=== PATIENT | female | born 1980 | race Caucasian/White ===

== ENCOUNTER 2017-01-17 16:57 | Emergency (ER) | payer OTHER ==
[2017-01-17 17:23] VITALS: BMI 22.4
[2017-01-17 17:24] VITALS: BP 131/84; PULSE 84; TEMP 97.9; O2SAT 100
[2017-01-17] MEDS ORDERED: Amoxicillin-Clav 875-125 mg Tab PO STA (17:39)
[2017-01-17] MEDS ORDERED: Bacitracin Ointment 30 GM TUBE TOP STA (17:39)
--- NOTE | 2017-01-17 17:39 | C.PDOC ---
History Of Present Illness 36 y/o female presents to ED status post dog bite while at work prior to arrival for evaluation of bite to right forearm. 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 Notes some contusion to Right forearm. Patient denies fever, chills, deformity of right arm, sensory or vascular deficits to Right arm, no weakness, denies any other complaints at this time. Tetanus not UTD . Ambulate to Ed for evaluation, not in any apparent distress. Time Seen by Provider: 01/17/17 17:25 Chief Complaint (Nursing): Bite History Per: Patient History/Exam Limitations: no limitations Onset/Duration Of Symptoms: Hrs Current Symptoms Are (Timing): Still Present Past Medical History Reviewed: Historical Data, Nursing Documentation, Vital Signs Vital Signs: Last Vital Signs Temp 97.9 F 01/17/17 17:23 Pulse 84 01/17/17 17:23 Resp 20 01/17/17 18:12 BP 131/84 01/17/17 17:23 Pulse Ox 100 01/17/17 18:05 - Medical History PMH: Anemia Surgical History: No Surg Hx Family History: States: No Known Family Hx - Social History Hx Alcohol Use: No Hx Substance Use: No Review Of Systems Constitutional: Negative for: Fever, Chills Musculoskeletal: Positive for: Arm Pain Skin: Negative for: Rash Neurological: Negative for: Weakness, Numbness Physical Exam - Physical Exam Appears: Non-toxic, No Acute Distress Skin: Warm, Dry, Other (2 superificial puncture wounds with mild contusion to soft tissue noted to volar aspect of right forearm (-)active bleeding (-)wound discharge, no clelulitis.) Head: Atraumatic, Normacephalic Eye(s): bilateral: PERRL Oral Mucosa: Moist Neck: Trachea Midline, Supple Cardiovascular: Rhythm Regular Respiratory: No Decreased Breath Sounds, No Accessory Muscle Use, No Rales, No Rhonchi, No Wheezing Gastrointestinal/Abdominal: Soft, No Tenderness, No Guarding, No Rebound Extremity: Normal ROM (RUE, no neurovascular deficits.), Capillary Refill (<2 seconds), No Deformity, Swelling (Right forearm) Pulses: Right Brachial: Normal, Left Radial: Normal Neurological/Psych: Oriented x3, Normal Speech, Normal Motor, Normal Sensation, Normal Reflexes ED Course And Treatment O2 Sat by Pulse Oximetry: 100 (RA) Pulse Ox Interpretation: Normal Progress Note: On re-evaluation, pt is afebrile, hemodynamicaly stable. Non- toxic. Tolerate PO well in ED. ENT: no acute findings. neck: Supple, (-) meningeal sign. Lungs: CTA B/L, BS equal B/L. Abd: benign. Right forearm: exam c/w animal bite, mild contusion. no cellulitis no wound draining. Neurologicaly intact. Wound throughly cleaned, abx cream topically applied. Pt reports, will F/U with dog's couture alterations dressmaker tomorrow. Pt advised on wound care. tetanus, abx given. ref. to f/u with PMD in 2-3 days for re-eavl. reutrn to ED if any worsening or new changes. Disposition Counseled Patient/Family Regarding: Diagnosis, Need For Followup, Rx Given - Disposition Referrals: [facility] [Outside] Disposition: HOME/ ROUTINE Disposition Time: 17:50 Condition: STABLE Additional Instructions: KEEP ARM ELEVATED FOR 2-3 DAYS CLEAN WOUND DAILY WITH PEROXIDE APPLY ANTIBIOTIC CREAM TO WOUND DAILY TAKE ANTIBIOTIC PRESCRIBED FOLLOW UP WITH DOG'S MAIL DISTRIBUTOR FOR RABIES VACCINATION STATUS FOLLOW UP WITH PMD IN 2 DAYS FOR RE-EVALUATION. RETURN TO ED IF ANY WORSENING OR NEW CHANGES, SIGN OF INFECTION. Prescriptions: Amoxicillin/Clavulanate [Augmentin 875 MG-125 MG] 1 tab PO BID #14 tab Bacitracin OINT 1 applic TP BID #1 tube Instructions: Animal Bite (ED) Forms: [employer] (American) - Clinical Impression Clinical Impression: Animal bite - PA / STUNT DOUBLE / Resident Statement MD/DO has reviewed & agrees with the documentation as recorded. - Scribe Statement The provider has reviewed the documentation as recorded by the Romainibramirez Hope All medical record entries made by the Scribe were at my direction and personally dictated by me. I have reviewed the chart and agree that the record accurately reflects my personal performance of the history, physical exam, medical decision making, and the department course for this patient. I have also personally directed, reviewed, and agree with the discharge instructions and disposition.
[2017-01-17] MEDS ORDERED: Bacitracin 500 Units/gm Oint Foilpak UD ONE (17:41)
[2017-01-17] MEDS ORDERED: Amoxicillin-Clav 875-125 mg Tab PO ONE (17:45)
[2017-01-17 18:13] VITALS: RESP 20
== END 2017-01-17 18:12 | disposition home or self-care (01) ==
LOC: C.ER 16:57
DX: S51.831A Puncture wound without foreign body of right forearm, initial encounter (principal); W54.0XXA Bitten by dog, initial encounter; Y92.89 Other specified places as the place of occurrence of the external cause; Y99.0 Civilian activity done for income or pay